=== PATIENT | female | born 1935 | race Caucasian/White ===

== ENCOUNTER 2022-03-20 12:55 | Inpatient (IN) | payer MEDICARE, OTHER ==
[~2022-03-20] VITALS: Ht 165.1 cm; Wt 64.7 kg
[2022-03-20] MEDS ORDERED: LO-DOSE ASPIRIN81 MG PO (13:25)
[2022-03-20] MEDS ORDERED: CALCIUM 600-VI1 EA10 PO (13:26)
[2022-03-20] MEDS ORDERED: LASIX20 MG PO (13:27)
[2022-03-20] MEDS ORDERED: LEVOTHYROXINE100 MC2 PO (13:27)
[2022-03-20] MEDS ORDERED: COZAAR100 MG PO (13:27)
[2022-03-20] MEDS ORDERED: MACROBID 100 M100 MG PO (13:28)
[2022-03-20] MEDS ORDERED: ALDACTONE25 MG PO (13:28)
[2022-03-20] MEDS ORDERED: SIMVASTATIN20 MG PO (13:28)
[2022-03-20] MEDS ORDERED: CEFDINIR300 MG PO (13:29)
[2022-03-20] MEDS ORDERED: FLOMAX0.4 MG PO (13:29)
[2022-03-20] MEDS ORDERED: GABAPENTIN300 MG PO (13:30)
--- NOTE | 2022-03-20 18:26 | EKG ---
[facility] [address] [place], [place] [address] Signed Normal sinus rhythm Left axis deviation Left bundle branch block Abnormal ECG No previous ECGs available Confirmed by Santi Stockton MD () on 03/20/2022 6:26:09 PM Electronically Signed By: SANTI STOCKTON MD 03/20/221825 PATIENT NAME: ALLAN IBARRA Electrocardiogram DATE OF : 35 PHYSICIAN: SANTI STOCKTON MD REPORT #: [id number] REPORT IS CONFIDENTIAL AND NOT TO BE RELEASED WITHOUT AUTHORIZATION
--- NOTE | 2022-03-20 19:35 | NUR ---
PT ASSESSMENT COMPLETE. PT ARRIVES TO FLOOR VIA STRETCHER. PULLED TO BED WITH STAFF ASSIST. PT MOANS WITH TURNING. PT DOES NOT ANSWER QUESTIONS REGARDING PAIN. FLACC SCALE 2/10. PT STATES PART OF HER , NOT ENTIRELY ACCURATE. OTHERWISE DISORIENTED. LUNG SOUNDS WITH CRACKLES TO BILATERAL LOWER LOBES. NO COUGH NOTED DURING ASSESSMENT. SA02 @ 100 ON 2 LPM VIA NC. CHRONIC STEVENSON CATH PRESENT. DRAINING YELLOW URINE. SMALL AMOUNT OF SEDIMENT PRESNT IN TUBING. CHANGED BY ER PRIOR TO COMING TO THE FLOOR. BRUISE TO L GARCIA, B HEELS WITH BLANCHABLE REDNESS. HEEL PROTECTORS APPLIED. SACRUM/ COCCYX WITH SEVERAL SMALL OPEN AREAS AND AREA OF PURPLE DEEP TISSUE INJURY. ALLEVYN FOAM APPLED. PICTURES OBTAINED, PLACED IN CHART. IV X 2 FLUSHED WITH 5 ML NS. WNL. HOT WATER HEATER INSTALLER REMAINS AT BEDSIDE FOR ADMISSION PROCESS. BED ALARM ACTIVE. CALL LIGHT IN REACH.
--- NOTE | 2022-03-20 20:13 | NUR ---
pt ARRIVES TO MS FLOOR AT 193. NODS HEAD IN REPONSE TO QUESTIONS. WHEN ASKED WHERE SHE LIVES, pt [facility]". pt DOES NOT ANSWER LOCATION QUESTION. VSS. PRIMARY RN IN ROOM. IV ANTIBIOTICS INFUSING WNL. BED ALARM SET. CALL VINOD IN REACH.
--- NOTE | 2022-03-20 22:51 | NUR ---
HYPERION DEVELOPER TO ROOM FOR SCHEDULED MEDCIATION ADMINISTRATION. PT WAKES BRIEFLY WHILE HYPERION DEVELOPER AT BEDSIDE. DOES NOT RESPOND TO QUESTIONS, FALLS BACK TO SLEEP QUICKLY. CALL LIGHT IN REACH. BED ALARM ACTIVE.
--- NOTE | 2022-03-21 00:48 | NUR ---
PT ROUNDING. PT RESTING IN BED WITH EYES CLOSED. RESPIRATIONS EVEN AND UNLABORED. PT DOES NOT WAKE WHILE DIALYSIS NURSE AT BEDSIDE. CALL LIGHT IN REACH. BED ALARM ACTIVE.
--- NOTE | 2022-03-21 03:11 | NUR ---
PT ASSESSMENT COMPLETE. PT RESTING IN BED WITH EYES CLOSED. WAKES EASILY. PT ORIENTED SELF ONLY. PT STATES THAT SHE IS THIRSTY, ABLE TO TAKE A DRINK OF WATER WITH ASSISTANCE. TOLERATED WELL. PT DENIES PAIN. CRACKLES AUSCLTATED TO BILATERAL LOWER LOBES OF LUNGS. NO COUGH NOTED DURING ASSESSMENT. O2 IN PLACE AT 2 LPM VIA NC. STEVENSON CATH DRAINING YELLOW URINE WITH SEDIMENT PRESENT IN THE TUBING. IVF INFUSING ORDERED. PT REPOSITIONED AND PROPPED WITH PILLOWS. TOLERATED WELL. PT DENIES FURTHER NEEDS. CALL LIGHT IN REACH. BED ALARM ACTIVE.
--- NOTE | 2022-03-21 06:08 | NUR ---
SUBSTITUTE BUS DRIVER TO ROOM FOR SCHEDULED MEDICATION ADMINISTRATION. PT RESTING WITH EYES CLOSED. PT WAKES EASILY. STATES THAT SHE IS HAVING PAIN TO LOWER GUMS. PT STATES THAT OCCASIONALLY HER LOWER DENTURES CAUSE HER PAIN. DENTURES REMOVED AND SOAKED IN EFFERDENT. PT DECLINES TO HAVE TOP DENTURES REMOVED AT THIS TIME. PT TOLERATES TAKING PILLS WELL. DENIES FURTHER NEEDS AT THIS TIME. CALL LIGHT IN REACH. BED ALARM ACTIVE.
--- NOTE | 2022-03-21 07:16 | NUR ---
RECEIVED REPORT FROM JOSHUA NOLAND. ASSUMING CARE OF PT. PT UP IN ROOM WITH 2PA/WALKER. PT SITTING IN CHAIR ONCE.
--- NOTE | 2022-03-21 07:28 | NUR ---
REPORT FROM NUZHAT GORDON.
--- NOTE | 2022-03-21 07:55 | NUR ---
PT IN BED SLEEPING. PT REPOS ONTO R SIDE. BLANKET REPOS ONTO PT. NO FURTHER NEEDS. CALL LIGHT WITHIN REACH
--- NOTE | 2022-03-21 08:20 | NUR ---
IN TO CHECK ON PT. PT OFF THE PHONE. I ASSOCIATE PROFESSOR OF PATHOLOGY ASKED PT IF WE COULD GET HER UP TO THE CHAIR AND PT STATED " I CAN HARDLY MOVE". I LET PT KNOW WE COULD TRANSFER HER VIA [facility] AND DO ALL THE WORK FOR HER. PT SAID NO. JESSENIA CARE/ CATH CARE PERFORMED. BRIEF WAS CHECKED AND WAS OK. PT SAT UP A LITTLE IN BED. FRESH ICE WATER GIVEN. NO FURTHER NEEDS. CALL LIGHT WITHIN REACH.
--- NOTE | 2022-03-21 09:37 | NUR ---
MORNING ASSESSMENT IS COMPLETE. DR. STOCKTON IN TO SEE PATIENT THIS MORNING. CSPINE ORDERED DUE TO PATIENT REPORTING NECK PAIN AND IS TURNED TO THE RIGHT. PATIENT INDICATES THAT SHE CANNOT MOVE HER HEAD TO THE LEFT. PATIENT IS A POOR HISTORIAN, UZBEK IS HER SECOND LANGUAGE AFTER MALTESE, AND GRANDDAUGHTER SAID SHE HAS DIFFICULTY UNDERSTANDING UZBEK AT TIMES. PATIENT IS UNABLE TO RATE HER PAIN, BUT GIVEN 2 ON FACES SCALE. PATIENT IS DRINKING MILK, VANILLA ENSURE ON HER OWN. PLAN TO TURN PATIENT AT 1000 AND REASSESS HER COCCYX DRESSING. FAMIILY AND PATIENT DO NOT KNOW WHEN LAST BM OCCURED.
--- NOTE | 2022-03-21 09:44 | NUR ---
IN ROOM TO DO VITALS AND IS AND OS. VITALS AND IS AND OS COMPLETE. PT BRIEF CHECKED AND OK. PT REPOS ONTO R SIDE. RN IN ROOM WITH ME THE WHOLE TIME. NO FURTHER NEEDS. CALL LIGHT WITHIN REACH
--- NOTE | 2022-03-21 11:21 | NUR ---
PATIENT TO IMAGING AND NOW BACK IN ROOM.
--- NOTE | 2022-03-21 11:39 | NUR ---
PHYSICAL THERAPY IN TO ATTEMPT TO WORK WITH PATIENT, PATIENT DID NOT TOLERATE ACTIVITY, BECAME NAUSEATED. PATIENT REPOSITIONED TO LEFT SIDE, NAUSEA WENT AWAY. PATIENT SEEMS TO BE RESTING.
--- NOTE | 2022-03-21 11:43 | NUR ---
RESTING IN BED AND WATCHING TV. PATIENT CURRENTLY LIVES AT [place] BECAUSE THERE WERE NO BEDS IN [facility] PATIENT WILL RETURN TO [facility] IN [place] WHEN DISCHARGED.
--- NOTE | 2022-03-21 12:59 | NUR ---
VITAL DONE AND ARE IMPROVED. DR. STOCKTON NOTIFIED. PATIENT IS SLEEPING WITH REGULAR RESPIRATIONS.
--- NOTE | 2022-03-21 13:00 | NUR ---
PT SITTING UP IN BED. VITALS AND IS AND OS COMPLETE. PT REPOS BY RN PERVIOUSLY. NO NEEDS. CALL LIGHT WITHIN REACH.
--- NOTE | 2022-03-21 13:10 | NUR ---
REPOSITIONED PATIENT TO RIGHT SIDE. PATIENT REFUSED LUNCH, SAYING, "WATER AND MILK" PATIENT IS SIPPING ON BOTH. PATIENT SAID IT HURTS TO MOVE AND NOTHING TASTES GOOD. PATIENT REPORTED THAT SHE IS NOT DEPRESSED.
[2022-03-21] MEDS ORDERED: CO Q-10200 MG PO (14:44)
[2022-03-21] MEDS ORDERED: PROBIOTIC1 EAC1 PO (14:48)
[2022-03-21] MEDS ORDERED: TYLENOL EXTRA500 MG PO (14:53)
--- NOTE | 2022-03-21 14:54 | NUR ---
MED REC COMPLETE
--- NOTE | 2022-03-21 15:23 | NUR ---
PATIENT IS SLEEPING AT THIS TIME. NO FAMILY IS PRESENT. NUTRITION ASSESSMENT WILL BE DONE ANOTHER TIME. PATIENT IS ON A REGULAR DIET.
--- NOTE | 2022-03-21 15:48 | NUR ---
PATIENT REPOSITIONED TO LEFT SIDE, LEGS ARE ELEVATED SO HEELS ARE OFF THE BED. PATIENT IS GRUNTING. WHEN ASKED WHY SHE REPLIES, "I DON'T KNOW WHY I'M MAKING THAT SOUND.
--- NOTE | 2022-03-21 16:05 | NUR ---
PATIENT GIVEN 10MG OF IV TORADOL R/T GRUNTING. PATIENT CONTINUES TO DENY PAIN.
--- NOTE | 2022-03-21 16:27 | NUR ---
PATIENT IS NOT GRUNTING POST TORADOL. PATIENT ASKED IF THE MEDICATION HELPED AND SHE SHOOK HER HEAD NO. PATIENT WAS ALSO ABLE TO MOVE HEAD TO CENTER.
--- NOTE | 2022-03-21 17:41 | NUR ---
PATIENT IS RESTING IN BED, REPOSITIONED. PATIENT IS REFUSING FOOD AT THIS TIME. PATIENT SAID, "MY SON AND DAUGHTER WILL BE HERE TOMORROW, I WANT TO GO HOME." PATIENT POINTED UP. PATIENT ALSO SAID, "I HAVE MY WISHES WRITTEN, MY FAMILY KNOWS."
--- NOTE | 2022-03-21 20:00 | NUR ---
REPORT RECEIVED FROM DAY SHIFT RN. PT LYING ON RIGHT SIDE RESTING WITH EYES CLOSED. AWAKENS EASILY. DENIES NEEDS. WHITE BOARD UPDATED. CALL LIGHT REACH.
--- NOTE | 2022-03-21 22:15 | NUR ---
PT HEARD GRUNTING. IN TO ASSESS. PT REPORTS FEELING NAUSEOUS AND LIKE SHE "NEEDS TO BURP, BUT NOTHING COMES OUT." PRN FOR N/V ADMIN PER EMAR. IV ABX INFUSING PER ORDER. PT DENIES PAIN. PT INCONTINENT OF SMALL AMOUNT BROWN BM. JESSENIA CARE AND STEVENSON CARE DONE. CLEAN BRIEF IN PLACE. STEVENSON PATENT WITH YELLOW URINE. PT REPOSITIONED WITH PILLOWS. HEEL PROTECTORS IN PLACE. WARM BLANKET PROVIDED. NO FURTHER NEEDS. CALL LIGHT IN REACH.
--- NOTE | 2022-03-22 00:15 | NUR ---
PT RESTING IN BED WITH EYES CLOSED. RESPIRATIONS EVEN. CALL LIGHT IN REACH.
--- NOTE | 2022-03-22 02:13 | NUR ---
PT FLOATED WITH PILLOWS. SIPS OF WATER PROVIDED. ASSISTED WITH ORAL CARE. IV ABX INFUSING PER ORDER. PT HAD REMOVED OXYGEN. SpO2 90% ON RA. NC REPLACED, PT STATES, "WHY? I DON'T WANT TO LIVE ANYMORE." COMFORT PROVIDED. NO FURTHER NEEDS AT THIS TIME.
--- NOTE | 2022-03-22 05:49 | NUR ---
PT INCONTINENT OF STOOL. STAFF ASSIST WITH JESSENIA CARE. REPOSITIONED WITH PILLOWS. IV ABX INFUSING PER ORDER. PT DENIES PAIN OR NAUSEA AT THIS TIME. NO FURTHER NEEDS.
--- NOTE | 2022-03-22 09:00 | NUR ---
PATIENT RESTING IN BED, NO DISTRESS, AROUSABLE TO VERBAL STIMULI. PATIENT DENIES PAIN AT THIS TIME. PATIENT REPOSITIONED AT THIS TIME WITH TICKET MACHINE OPERATOR ASSIST. NO CURRENT NEEDS, PERSONAL SUPPLIES AND CALL LIGHT WITHIN REACH.
--- NOTE | 2022-03-22 09:12 | NUR ---
SPOKE TO DAUGHTER SEBASTIEN. THE PLAN OF CARE CONTINUES TO BE THAT THE PATIENT WILL GO BACK TO [facility] WHEN DISCHARGED FOR REHAB.FAMILY PLANS THAT THE PATIENT WILL GO BACK HOME IN THE FUTURE.
--- NOTE | 2022-03-22 09:23 | NUR ---
NEW MAINLINE IV FLUIDS HUNG BY THIS RN AND PATIENT'S LOVENOX SHOT GIVEN WHICH SHE TOLERATED WELL. PATIENT RESTING QUIETLY IN LOW FOWLERS POSITION. CALL LIGHT IN REACH AND PATIENT HAS NO OTHER NURSE CARE NEEDS AT THIS TIME.
--- NOTE | 2022-03-22 12:35 | NUR ---
PATIENT REPOSITIONED AT THIS TIME. PT DENIES PAIN AND OR SHORTNESS OF BREATH. ORAL CARE PROVIDED, FRESH WATER TO PT. NO FURTHER NEEDS, CALL LIGHT WITHIN REACH.
--- NOTE | 2022-03-22 13:23 | NUR ---
Family at beside. Family and patient want to go to back to the [facility]. Right now patient is at [facility]. Family would like to move patient to [facility] Case Manangement enformed family that patient will return to [facility] to be discharged when patient is well.
--- NOTE | 2022-03-22 13:39 | NUR ---
PATIENT'S FAMILY IS NOW VISITING. PATIENT'S DAUGHTER WANTS PATIENT TO EAT WHILE THE DAUGHTER IS HERE. GREEN BEANS AND CREAM OF MUSHROOM SOUP PROVIDED REQUESTED. PATIENT SEEMS A BIT CONFUSED. SAYS SHE LIKES THE ENSURE CLEAR WHICH WE HAVE. PER THE DAUGHTER, THE PATIENT HAS NOT EATEN SINCE 03/10. SHE WENT TO [place] ON 03/08, HAD A GOOD DAY 03/09, BUT HAS NOT EATEN MUCH SINCE 03/10. A REGULAR DIET MENU WAS PROVIDED AND I EXPLAINED TO THE FAMILY TO CALL THE KITCHEN BY 3:30 PM TO MAKE ANY CHANGES TO HER DINNER. PATIENT HAS NO DIFFICULTY CHEWING OR SWALLOWING. LIKES BLACK COFFEE, LIKES MILK. DOESN'T LIKE STRAWBERRY ENSURE? WILL CONTINUE TO MONITOR.
--- NOTE | 2022-03-22 17:12 | NUR ---
PT RESTING IN BED. VITALS AND IS AND OS COMPLETE. PT DECLINED TO EAT MEAL. NO FURTHER NEEDS. CALL LIGHT WITHIN REACH
--- NOTE | 2022-03-22 17:54 | NUR ---
Patient repositioned at this time. Patient reports she is comfortable at this time, no pain. Patient offered water and a snack however she declined. Patient reports she does not have an appetite. IV site remains patent, kcl infusing per provider order. Patient remains on 2L oxygen per nc, respirations non labored.
--- NOTE | 2022-03-22 19:10 | NUR ---
REPORT RECEIVED FROM NUZHAT HERNANDEZ. PT RESTING IN BED WITH RR EVEN AND UNLABORED. PTs EYES CLOSED. PT AWAKENS WITH TOUCH ON SHOULDER AND WHEN BEING ADDRESSED. PT IS DROWSY. PT REPORTS HAVING AN UPSET STOMACH. PLANS TO ADMINISTER ZOFRAN WHEN AVAILABLE. PT CONTINUES TO REST IN BED WITH EYES CLOSED. NO OTHER NEEDS IDENTIFIED AT THIS TIME. IV INFUSING WNL. CALL LIGHT IN REACH.
--- NOTE | 2022-03-22 22:04 | NUR ---
IN TO ADMINISTER MEDICAITON, SEE MAY. IV ABX AND IV FLUIDS INFUSING WNL. ASSESSMENT COMPLETE. LUNG SOUNDS CLEAR IN RUL AND SHERICE. DIMINISHED AND CRACKLES IN RLL AND LLL. BOWEL TONES ACTIVE. NON-TENDER WITH PALPATION. PT DENIES ANY PAIN AT THIS TIME. PT REPORTING FEELING NAUSEOUS, PRN ZOFRAN ADMINISTERED, SEE MAR. PT ON 2L NC WITH O2 SATS AT 100%. EDEMA NOTED TO BLE NON-PITTING. SCATTERED BRUISING NOTED TO BILATERAL ARMS. PT REPORTS NO OTHER NEEDS AT THIS TIME. CALL LIGHT IN REACH. BED ALARM ON.
--- NOTE | 2022-03-23 01:03 | NUR ---
IN WITH NUZHAT MIRANDA. PT TURNED. PILLOW PLACED UNDER RIGHT SIDE. PT REPORTS NO OTHER NEEDS AT THIS TIME. CALL LIGHT IN REACH. BED ALARM ON. PT RESTING IN BED WITH EYES CLOSED. RR EVEN AND UNLABORED.
--- NOTE | 2022-03-23 03:24 | NUR ---
IN TO ADMINISTER MEDICATION, SEE MAR. IV INFUSING WNL. PT GROANING. PT OFFERED PRN TYLENOL, PT ACCEPTS. WHEN ATTEMPTING TO ADMINISTER PRN TYLENOL PT REFUSES. PT RATED PAIN 3/10 IN UPPER ABD. PT REPORTS FEELING NAUSEOUS. NO NAUSEA MEDICATION AVAILABLE AT THIS TIME. ASSESSMENT COMPLETE. LUNG SOUNDS CLEAR IN RUL AND SHERICE. DIMINISHED IN RLL AND LLL WITH SOME CRACKLES IN RLL. BOWEL TONES ACTIVE. STEVENSON EMPTIED. CATHETER CARE PERFORMED. BM NOTED. NUZHAT MIRANDA IN TO ASSIST WITH JESSENIA CARE. ALLEVYN REMOVED DUE TO STOOL BEING UP UNDER ALLEVYN, NEW ALLEVYN PLACED ONCE JESSENIA AREA CLEANED. RENDESS NOTED TO GROIN, CAVILON SPRAY TO AREA. NEW ATTEND UNDER PT, BUT LEFT OPEN SO GROIN AREA CAN AIR OUT. PTs KNEES UP WITH PILLOW BETWEEN KNEES TO ALLOW FOR AIR FLOW. PT RESTING IN BED. EYES CLOSED. RR EVEN AND UNLABORED. PT IS NOT GORANING AT THIS TIME. NO OTHER NEEDS IDENTIFIED AT THIS TIME. CALL LIGHT IN REACH. BED ALARM ON.
--- NOTE | 2022-03-23 06:13 | NUR ---
LAB TECHS IN pt ROOM. SCHEDULED ANTIBIOTIC ADMINISTERED, INFUSING WNL. PO MEDICATION ADMINISTERED WITH SIP OF WATER. CALL LIGHT IN REACH. BED ALARM ON.
--- NOTE | 2022-03-23 07:48 | NUR ---
recieved shift report. pt laying in bed, awake. denies further needs. reoriented to the call light.
--- NOTE | 2022-03-23 09:20 | NUR ---
MORNING ASSESSMENT COMPLETE. PT DENIES PAIN AT THIS TIME. MOVING LEGS DURING ASSESSMENT PT BEGAN TO MOAN, AND GRIMACE, BUT CONTINUED TO DENY PAIN. PT IS AWARE SHES AT HOSPITAL BUT UNABLE TO VERBALIZE DATE, PLACE, AND EVENT. LUNG SOUNDS CLEAR BILAT UPPER. CRACKLES BILAT LOWER. CATHETER PATENT AND WITH CLEAR YELLOW DRAINAGE. CALL LIGHT WITHIN REACH.
--- NOTE | 2022-03-23 10:00 | NUR ---
Spoke with pt and updated, plans for pt to remain another day. Pt states she is not happy about this and asks I call her daughter to update.
--- NOTE | 2022-03-23 11:40 | NUR ---
SET UP OPERATOR TOOL REPORTED BP 98/41 MAP 53. THIS RN IN ROOM TO REASSESS BP ON OPPOSITE ARM 102/39 MAP 54. PT DENIES LIGHTHEADED, DIZZINESS, SOB. MAHIN NOTIFIED. MAHIN WILL PUT IN ORDERS.
--- NOTE | 2022-03-23 12:39 | NUR ---
IN ROOM TO FEED PT. PT TOOK A BITE OF COTTAGE CHEESE. TOLERATED WELL. PT TOOK ANOTHER BITE BEGAN TO GAG AND THREW UP 200 ML. TOOK A COUPLE SIPS OF WATER AND TOLERATED WELL. PT REFUSES TO EAT.
--- NOTE | 2022-03-23 13:20 | NUR ---
Called daughter, Cristin, and updated. She states she has called twice attempting to speak with the Dr. She would like this pt to have a feeding tube. I expressed my surprise and pt was stating yesterday she did not want to continue to have treatment. She is tired of hospitals. Pt has also stated she had discussed this with the family. I asked the daughter if the pt had discussed this with her. She denies. I asked her to have an in depth conversation with her mother to clarify her wishes.
--- NOTE | 2022-03-23 14:17 | NUR ---
In with Dr. Robison to speak with pt to check if pt would like a feeding tube. Pt explained to DrGabi she vomites each time she eats. He suggested the work on her vomiting before deciding if she needs feeding tube. Pt in agreement.
--- NOTE | 2022-03-23 16:30 | NUR ---
AFTERNOON ASSESSMENT COMPLETE. PT IN RECLINER. REMAINS ON 2L NC. NO NEW CHANGES FROM MORNING ASSESSMENT. DESENEX APPLIED TO REDDENED GROIN. CATHETER PATENT. CALL LIGHT WITHIN REACH.
--- NOTE | 2022-03-23 18:15 | NUR ---
IN ROOM TO ASSIST PT TO BED. PT COMPLAINS OF DIZZINESS. PT INC OF BM. CLEANED. DESENEX REAPPLIED TO GROIN, BARRIER CREAM APPLIED TO BUTTOCK, WITH DAVID LAFLEUR. MANNY RN SPOKE WITH BONNIE REGARDING DIZZINESS. WILL PUT IN ORDERS. CALL LIGHT WITHIN REACH. PT REFUSED DINNER.
--- NOTE | 2022-03-23 19:10 | NUR ---
RECEIVED REPORT FROM NARCISA NOLAND. PT IS RESTING IN BED W/EYES CLOSED. RESPIRATIONS ARE EVEN AND UNLABORED, NO SIGNS OF DISTRESS. CALL LIGHT WITHIN REACH. IV FLUIDS RUNNING DIRECTED. 2 L O2 VIA NC ON AT THIS TIME.
--- NOTE | 2022-03-23 22:50 | NUR ---
PT RESTING IN BED W/EYES CLOSED. PILLOWS PLACED UNDER BOTH HIPS FOR FLOATING. PILLOWCASE PLACED UNDER STEVENSON SITE TO PREVENT PRESSURE WOUND. STEVENSON CARE PERFORMED. LUNGS ARE DIM THROUGHOUT, PT DOES NOT FOLLOW INSTRUCTION FOR DEEP BREATH. UNABLE TO ASSESS SENSATION, PT ONLY MOANS AND WILL BRIEFLY OPEN EYES. PT IS DROWSY BUT WILL MOAN IN RESPONSE TO VOICE AND TOUCH. NONPITTING EDEMA PRESENT IN LFT LOWER EXTREMITY. CMS INTACT X4. PT DOES NOT ANSWER ORIENTATION QUESTIONS. PER FLACC SCALE PT NOT IN PAIN AT THIS TIME, MOANS ONLY WHEN MOVED. FLUIDS INFUSING DIRECTED. ALLEVYN TO SACRUM IS C/D/I, NO OTHER SIGNS OF SKIN BREAKDOWN AT THIS TIME. CALL LIGHT WITHIN REACH.
--- NOTE | 2022-03-24 00:56 | NUR ---
PT RESTING IN BED W/EYES CLOSED. RESPIRATIONS ARE EVEN AND UNLABORED, NO SIGNS OF DISTRESS. CALL LIGHT WITHIN REACH. PT REMAINS ON 2L NC (CHRONIC). STEVENSON DRAINING TO GRAVITY.
--- NOTE | 2022-03-24 01:50 | NUR ---
REMOVED PILLOW FROM LFT SIDE. PT RESTING W/EYES CLOSED. RESPIRATIONS EVEN AND UNLABORED, NO SIGNS OF DISTRESS. CALL LIGHT WITHIN REACH. STEVENSON DRAINING TO GRAVITY. PT ON 2L OF O2 VIA NC (CHRONIC).
--- NOTE | 2022-03-24 04:10 | NUR ---
PT RESTING W/EYES CLOSED. RESPIRATIONS ARE EVEN AND UNLABORED, NO SIGNS OF DISTRESS. PT ON 2L OF O2 VIA NC. STEVENSON DRAINING TO GRAVITY. PILLOW UNDER LFT SIDE FOR FLOATING. PT MOANS W/REPOSITIONING BUT RELAXES AFTER PILLOW IS PLACED. CALL LIGHT WITHIN REACH. IV FLUIDS INFUSING DIRECTED.
--- NOTE | 2022-03-24 06:13 | NUR ---
PT RESTING W/EYES CLOSED. RESPIRATIONS ARE EVEN AND UNLABORED, NO SIGNS OF DISTRESS. CALL LIGHT WITHIN REACH. PT ON 2L OF O2 VIA NC. PILLOW PLACED UNDER RT SIDE. PT MOANS W/MVMNT, AND SELF SOOTHES ONCE REPOSITIONING COMPLETE.
--- NOTE | 2022-03-24 06:30 | NUR ---
IN PT ROOM FOR ASSESSMENT, VS, I/O'S, AND ASSESSOR. PT A&O TO ALL BUT DATE/TIME. PT REQUESTED CUP OF COFFEE. IV FLUIDS INFUSING DIRECTED. NO ACUTE CHANGES FROM PREVIOUS ASSESSMENT. BLE NONPITTING EDEMA AND TENDER TO TOUCH, PT STATES THIS IS NORMAL. PILLOWS REMOVED FOR REPOSITIONING, PT WINCES AND MOANS W/REPOSITIONING BUT SETTLES AND STATES COMFORTABLE ONCE COMPLETE. PT ON 2L NC OF O2 (CHRONIC PER PT). CALL LIGHT WITHIN REACH, NO FURTHER NEEDS AT THIS TIME.
--- NOTE | 2022-03-24 07:50 | NUR ---
RECIEVED SHIFT REPORT. PT RESTING IN BED, EYES CLOSED. BREATHING EVEN AND UNLABORED. CALL LIGHT WITHIN REACH.
--- NOTE | 2022-03-24 08:36 | NUR ---
Pt in bed after repostioning to float. pt does not want to eat but did take coffee. call light within reach.
--- NOTE | 2022-03-24 09:29 | NUR ---
PATIENT RESTING IN BED. PT REFUSED BREAKFAST. VITALS AND I/O'S COMPLETED, STEVENSON DRAINED AND DOCUMENTED. PT HAS NO OTHER NEEDS AT THIS TIME. CALL LIGHT WITHIN REACH.
--- NOTE | 2022-03-24 09:47 | NUR ---
MORNING ASSESSMENT COMPLETE. PT RESTING IN BED, EYES CLOSED, EASY TO AROUSE. PT STATES SHE IS PAIN, BUT IS UNABLE TO RATE THE PAIN. WHEN ASSESSING LEGS PT GRIMACES. PT REFUSED PRN PAIN MEDICATION, AND STATES "LET ME GO BACK TO SLEEP". PT REMAINS ON 2L NC. LUNG SOUND CLEAR BILAT UPPER. DIMINISHED BILAT LOWER. PT ENCOURAGED TO DRINK ENSURE, BUT CONITUNES TO REFUSE. CALL LIGHT WITHIN REACH. CATHETER PATENT.
--- NOTE | 2022-03-24 10:35 | NUR ---
phyiscal therapy reported pt said her son and daughter said they dont want her getting out of bed. pt refusing to get out of bed. pt states "i am in [facility]".
--- NOTE | 2022-03-24 11:10 | NUR ---
STOPPED TO CHECK ON PT-SHE IS SLEEPING. DID NOT DISTURB
--- NOTE | 2022-03-24 11:39 | NUR ---
IV FLUIDS CHANGED. PT RESTING IN BED, EYES CLOSED. BREATHING EVEN AND UNLABORED. CALL LIGHT WITHIN REACH.
--- NOTE | 2022-03-24 11:49 | NUR ---
SPEECH/SWALLOW EVALUATION ATTEMPTED; PT INFORMED OF RISKS/BENEFITS FOR EVALUATION, BUT ULTIMATELY PT REFUSED SWALLOW EVALUATION VIA HEAD SHAKE.
--- NOTE | 2022-03-24 12:00 | NUR ---
Spoke with pt, her daughter, and pts spouse. Daughter is a nurse in [facility] [facility]. Notified by daughter, pt no longer wanting treatment. Awakened pt and explained to daughter we will follow pts wishes. Asked pt several questions about her wants and pt adamantly refusing treatment.Pt stating, "I want to go home." I asked pt what home means to her, she states, "[place]". Pt begging daughter for no more treatment, asking for no more shots or pokes. Pts mouth is dry and daughter attempted to give her water with a straw, pt could not sip through a straw. Drops of water were placed into pts mouth. Dr Robison spoke with pt and pt repeated she doesn't want treatment. Discussed Hospice with pt and daughter. Pt would like to return to her home in [place]. Daughter states she would be able to stay with pt and her dad to assist. Returned to my office and called [facility] in [facility]. They request a chart to review. Unsure if they could admit this weekend, but are willing to review the chart.
--- NOTE | 2022-03-24 12:15 | NUR ---
IN ROOM WITH PATIENT FAMILY, CASE MANAGEMENT, AND DR STOCKTON DISCUSSING PLAN OF CARE.
--- NOTE | 2022-03-24 14:43 | NUR ---
PT LAYING IN BED. FAMILY AT BEDSIDE. ABX ZOSYN BEING ADMINISTERED AT THIS TIME. CALL LIGHT WITHIN REACH.
--- NOTE | 2022-03-24 16:00 | NUR ---
AFTERNOON ASSESSMENT COMPLETE. NO NE CHANGES SINCE MORE ASSESSMENT. CALL LIGHT WITHIN REACH.
--- NOTE | 2022-03-24 16:32 | NUR ---
Notified pt's son has arrived. In and spoke with daughter, son, and pts spouse. Pt is awake and clearily stating she is going home. They are attempting to explain they need to have hospice in for a bed and equipment before she can go home. Pt stating she will sleep on the sofa. Explained hospice to family. Let them know I have been speaking with Angely from [facility] and she will contact them on Sunday. FAmily plans to return on to be with pt. Hospice states they could admit this pt on Sunday as they have an opening. They will also need to have DME delivered. They will confirm on Sunday. They will be closed until Sunday due to the Holiday.
--- NOTE | 2022-03-24 17:39 | NUR ---
PATIENT IN BED AFTER MEAL. PT REFUSED THE MEAL. VITALS AND I/O'S COMPLETED. STEVENSON DRAINED AND DOCUMENTED. PT HAS NO OTHER NEEDS AT THIS TIME. CALL LIGHT WITHIN REACH.
--- NOTE | 2022-03-24 17:58 | NUR ---
[phone], .
--- NOTE | 2022-03-24 19:05 | NUR ---
RECEIVED REPORT FROM NARCISA NOLAND. PT RESTING IN BED W/EYES CLOSED. RESPIRATIONS ARE EVEN AND UNLABORED, NO SIGNS OF DISTRESS. PT ON 1L OF O2 VIA NC. STEVENSON DRAINING TO GRAVITY. CALL LIGHT WITHIN REACH.
--- NOTE | 2022-03-24 21:50 | NUR ---
IN PT ROOM FOR ASSESSMENT. PT RESTING W/EYES CLOSED BUT AWAKENS TO VOICE. PT REPORTS NO PAIN AT THIS TIME. PT REPORTS NO NAUSEA, SOB, OR DIZZINESS. STEVENSON DRAINING TO GRAVITY, STEVENSON CARE PERFORMED. JESSENIA CARE PERFORMED, DESENEX POWDER APPLIED TO GROIN REGION. LUNGS ARE DIM THROUGHOUT AND COARSE IN BASES, PT UNABLE TO TAKE DEEP BREATHS. NONPITTING EDEMA IN BLE, INCREASED IN LFT LEG, PAIN W/TOUCH TO LEGS. ACTIVE BOWEL TONES X4. IV FLUIDS INFUSING DIRECTED, SITE WNL. ALLEVYN TO BACKSIDE C/D/I. CALL LIGHT WITHIN REACH, NO FURTHER NEEDS AT THIS TIME.
--- NOTE | 2022-03-24 22:22 | NUR ---
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 IV SITE WNL. ABX NOW INFUSING DIRECTED. PT RESTING W/EYES CLOSED, RESPIRATIONS ARE EVEN AND UNLABORED, NO SIGNS OF DISTRESS. CALL LIGHT WITHIN REACH. NC IN PLACE W/2L OF O2 (CHRONIC).
--- NOTE | 2022-03-25 00:37 | NUR ---
PERFORMED HOURLY ROUNDING. PT RESTING IN BED W/EYES CLOSED. RESPIRATIONS ARE EVEN AND UNLABORED, NO SIGNS OF DISTRESS. CALL LIGHT WITHIN REACH. IV ABX INFUSING DIRECTED. 2L NC OF O2 IN PLACE (CHRONIC).
--- NOTE | 2022-03-25 01:30 | NUR ---
PT RESTING W/EYES CLOSED. RESPIRATIONS ARE EVEN AND UNLABORED, NO SIGNS OF DISTRESS. CALL LIGHT WITHIN REACH. STEVENSON DRAINING TO GRAVITY. HEEL PROTECTORS IN PLACE. IV ABX INFUSING DIRECTED, SITE WNL. RECEIVING 2L VIA NC (CHRONIC).
--- NOTE | 2022-03-25 03:02 | NUR ---
PT RESTING W/EYES CLOSED. RESPIRATIONS ARE EVEN AND UNLABORED, NO SIGNS OF DISTRESS. CALL LIGHT WITHIN REACH. IV FLUIDS INFUSING DIRECTED. O2 DELIVERY OF 2L VIA NC (CHRONIC) IN PLACE. PT APPEARS COMFORTABLE AT THIS TIME.
--- NOTE | 2022-03-25 04:30 | NUR ---
PT RESTING W/EYES CLOSED. RESPIRATIONS ARE EVEN AND UNLABORED, NO SIGNS OF DISTRESS. CALL LIGHT WITHIN REACH.
--- NOTE | 2022-03-25 05:33 | NUR ---
IN PT ROOM D/T BEEPING PUMP. NEW BAG OF CONTINUOUS FLUIDS HUNG. PT RESTING W/EYES CLOSED. RESPIRATIONS ARE EVEN AND UNLABORED, NO SIGNS OF DISTRESS. IV SITE WNL. CALL LIGHT WITHIN REACH.
--- NOTE | 2022-03-25 05:45 | NUR ---
IN PT ROOM FOR REFUSE COLLECTOR SUPERVISOR, ASSESSMENT. PT RESTING IN BED, AWAKENS TO VOICE. PT REPORTS NO PAIN, NAUSEA, N/T, DIZZINESS, SOB AT THIS TIME. NO ACUTE CHANGES FROM PREVIOUS ASSESSMENT. PT ONLY ORIENTED TO SELF AT THIS TIME. REORIENTED PT. PT STATES SHE IS READY TO GO HOME, ASKED WHERE HOME WAS AND PT POINTED UP TO THE CEILING. ASKED PT TO SMILE TO TEST FACIAL MUSCLE STRENGTH D/T PRESENT WEAKNESS W/SPEECH AND PT STATES SHE "HAS NOTHING TO SMILE ABOUT". PILLOW REMOVED FROM RT SIDE, PT MOANS W/MVMNT BUT QUICKLY CONSOLED ONCE SETTLED AFTER POSITION CHANGE. PT UNABLE TO SIP FROM STRAW, SMALL SPOONFULLS OF WATER GIVEN, PT TOLERATED WELL DURING REFUSE COLLECTOR SUPERVISOR. CALL LIGHT WITHIN REACH, NO FURTHER NEEDS AT THIS TIME.
--- NOTE | 2022-03-25 07:39 | NUR ---
REPORT RECEIVED FROM NUZHAT JAMES. PT RESTING IN BED WITH EYES CLOSED, RESPRIATIONS EVEN AND UNLABORED ALTHOUGH "O SIGN" IS SEEN WITH OPEN MOUTH BREATHING. ERIKA REPORTS THAT PT IS VERY TENDER TO TOUCH ANYWHERE ON HER BODY AND DECLINES MOVEMENT. DR. NICOLE UPDATED AND NEW ORDERS GIVEN FOR SCD'S AND MORPHINE, ORDERS ENTERED, REPEAT BACK PERFORMED. NO ADDITONAL NEEDS AT THIS TIME. CALL LIGHT WIHTIN REACH. BED RAILS UP.
--- NOTE | 2022-03-25 08:11 | NUR ---
PATIENT IN BED THIS AM. PT REFUSED TO GET INTO CHAIR. PT WAS ALSO REPOSITIIONED TO A "FLOAT" WITH TWO PILLOWS UNDER EACH SIDE. PT ALSO TOOK SIPS OF WATER AND COFFEE FROM A SPOON. AM CARE COMPLETED. CALL LIGHT WITHIN REACH.
--- NOTE | 2022-03-25 09:07 | NUR ---
MORNING ASSESSMENT AND MEDICATION DUE. PT DENIES PAIN AND NAUSEA. PT NOTED TO BE VERY SENSITIVE TO TOUCH OR ANY MOVEMENT. PT DECLINES REPOSITIONING. PT DECLINES PAIN MEDICATIONS. PT STATES "NO NEEDLES!" AND DECLIENS ENOXAPARIN. PT ALSO DECLINES SCD'S. PT EDUCAITON DONE REGARDING CLOT PREVENTION. PT VERBALIZES UNDERSTANDING AND CONTINUES TO DECLINE. PT STATES SHE WOULD LIKE TO "GO HOME TO [facility]" AND DOES NOT WANT MORE TREATEMENT. PT ASSISTED WITH GETTING COMFORTABLE. ARMS ELEVATED ON PILLOWS. LUNG SOUNDS CLEAR IN UPPER LOBES, CORSE AND DEMINISHED IN BASES. PT COUGHING UP THICK YELLOW SPUTUM. DENTURES REMOVED BY PT. SUCTION APPLIED TO ASSIST WITH SPUTUM. HEART TONES REGULAR, MURMUR HEARD. GENERALIZED EDEMA CONTINUES IN LEGS AND ARMS. ABDOMEN SOFT AND NON TENDER. PT DECLIENS BREAKFAST. CLEAR YELLOW URINE NOTED IN STEVENSON CATHETER, QUANTITY SUFFICIENT. NO ADDITIONAL ERQUESTS OR COMPLAINTS AT THIS TIME. CALL LIGHT WITHIN REACH. BED RAILS UP.
--- NOTE | 2022-03-25 09:25 | NUR ---
PATIENT LYING IN BED, EYES CLOSED. VITALS AND I/O'S COMPLETED. STEVENSON DOCUMENTED AND DRAINED. CALL LIGHT WITHIN REACH.
--- NOTE | 2022-03-25 09:54 | NUR ---
THIS RN TO ROOM TO CHECK ON PT. PT RESTING IN BED WITH EYES CLOSED. RESPIRATIONS EVEN AND UNLABORED. "O" SIGN CONTINUES. PT ALLOWED TO REST. CALL LIGHT WITHIN REACH. BED RAILS UP.
--- NOTE | 2022-03-25 10:36 | NUR ---
PATIENT REPOSTIONED TO THE LEFT SIDE, ORAL CARE COMPLETED. PT REFUSED WASHCLOTH. PT CALL LIGHT IN REACH.
--- NOTE | 2022-03-25 11:26 | NUR ---
THIS RN TO ROOM TO CHECK ON PT. PT RESTING WITH EYES CLOSED. PTS GRANDDAUGHTER ARRIVED TO VISIT WITH PT. EXTENSIVE ORAL CARE WITH SUCTION PERFORMED. MOUTH DEBREEDING AGENT, MOUTH WASH, AND MOUTH MOISTURIZER USED. PT DOES NOT LIKE ORAL CARE AND STATES "YOU ALL NEED TO GO HOME" BUT VERBALIEZES UNDERSTANDING OF NEED FOR ORAL CARE. FAMILY EXPRESSES APPREICAITON FOR ORAL CARE. PT REMAINS ON RIGHT SIDE, SUPPROTED WITH PILLOWS. HEAD OF BED ELEVATED TO 30 DEGREES. PT DENIES PAIN AND NAUSEA. NO ADDITONAL REQUESTS OR COMPLAINTS. CALL LIGHT WITHIN REACH. BED RAILS UP.
--- NOTE | 2022-03-25 11:59 | NUR ---
THIS RN TO ROOM TO CHECK ON PT. PT REQUESTS ICE CHIPS, ICE CHIPS PROVIDED. PT DENIES PAIN AND NAUSEA. PT DECLINES REPOSITOINING AT THIS TIME. BED RAILS UP. CALL LIGHT WITHIN REACH. PTS GRANDDAUGTHER PAINTING PTS TOE NAILS. NO ADDIITONAL REQUESTS OR COMPLAINTS. CALL LIGHT WITHIN REACH. BED RAILS UP.
--- NOTE | 2022-03-25 12:30 | NUR ---
Patient repositioned to right side in bed. Pt refused oral care as well as reji care. This AUTOMATIC MAINTAINER will reapproach when rounding. Call light within reach.
--- NOTE | 2022-03-25 13:06 | NUR ---
THIS RN TO ROOM TO CHECK ON PT. PT RESTING ON RIGHT SIDE, SUPPORTED WITH PILLOWS. HEAD OF BED ELEVATED TO 30 DEGREES. RESPIRATIONS EVEN AND UNLABORED ALTHOUGH "O" SIGN CONTINUES. PT ALLOWED TO REST. CALL LIGHT WITHIN REACH. BED RAILS UP.
--- NOTE | 2022-03-25 14:00 | NUR ---
PATIENT LYING IN BED. VITALS AND I/O'S COMPLETED. STEVENSON DRAINED AND DOCUMENTED. PT REFUSED DRINK OF WATER/COFFEE. CALL LIGHT WITHIN REACH.
--- NOTE | 2022-03-25 14:17 | NUR ---
AFTERNOON ASSESSMENT AND MEDICATION DUE. PT RESTING IN BED WITH EYES CLOSED ON RIGHT SIDE. PT OPENS EYES TO VOICE AND TOUCH. PT IRRITABLE AND STATES SHE JUST WANTS "TO GO HOME." PT DENIES PAIN AND NAUSEA. PT OREINTED TO BUILDING BUT NOT TO TOWN. PT KNOWS HER OWN NAME AND IS AWARE OF RECENT EVENTS STATING "I DON'T WANT ANY MORE SHOTS." PT KNOWS MONTH AND YEAR BUT NOT DAY OR TIME. PT VERY SLOW TO RESPOND TO QUESTIONS AND FALLS ASLEEP BETWEEN CARES. TIRE RETREADER STRENGTH EQUAL BILATEARLLY. HEART TONES REGULAR WITH MURMUR HEARD. PT CONTINUES TO BE SENSITIVE TO TOUCH BUT DECLINES PAIN MEDICATION. PT NOW BMAT LEVEL 1, UNABLE TO SIT EVEN WITH SUPPORT. PT DELCINES ALL MOVEMENT. PT REPOSITIONED TO SEMIFOWLERS WITH HEAD OFBED AT 30 DEGREES. CLEAR LUNGS SOUNDS IN UPPER LOBES, CORSE IN BASES. OCCATIONAL PRODUCTIVE COUGH WITH YELLOW SPUTUM. SUCTION AT BEDSIDE. EDEMA UNCHANGED. STEVENSON CATHETER CONTINUES SHOWING CLEAR YELLOW URINE. PT RETURNS TO RESTING WITH EYES CLOSED. NO ADDITIONAL REQUESTS OR COMPLAINTS. CALL LIGHT WITHIN REACH. BED RAILS UP.
--- NOTE | 2022-03-25 15:28 | NUR ---
THIS RN TO ROOM TO CHECK ON PT. PT RESTING WITH EYES CLOSED, RESPIRATIONS EVEN AND UNLABORED. RR OF 18. BED RAILS UP. CALL LIGHT WIHTIN REACH. PT ALLOWED TO REST.
--- NOTE | 2022-03-25 16:53 | NUR ---
THIS RN TO ROOM TO CHECK ON PT. PT RESTING WITH EYES CLOSE IN SEMIFOWLER POSITION WITH HEAD OF BED AT 35 DEGREES. RESPRIATIONS EVEN AND UNLABORED. FLACC SCORE OF 0. PT RESPONDS TO TOUCH. PT ALLOWED TO CONTINUE RESTING. CALL LIGHT WITHIN REACH. BED RAILS UP.
--- NOTE | 2022-03-25 17:05 | NUR ---
PT HERE FOR PNEUMONIA AND FAILURE TO THRIVE. PT REMAINS IN BED THIS SHIFT, NO LONGER ABLE OR WILLING TO GET UP OUT OF BED. PT DECLINING MEALS AND TAKING VERY LITTLE PO FLUID. IV FLUIDS CONTINUE. IV ABX GIVEN. PT DENIES PAIN OR NAUSE THROUGHOUT SHIFT AND REFUSES MANY MEDICATIONS AND CARES THROUGHOUT SHIFT, MD AWARE. PT REMAINS ON 2L O2 BY DE TO MAINTAIN OXYGEN SATURATIONS ABOVE 90%. PT SENSITIVE TO ANY TOUCH OR MOVEMENT BUT DECLINES PAIN MEDICATION. STEVENSON CATHETER IN PLACE, QUANITTY SUFFICIENT ALTHOUGH MINMAL. PT STATES REPEADILY THAT SHE JUST WANTS "TO GO HOME TO [facility]." ORAL CARE DONE. PT DOES NOT USE CALL LIGHT. INTENTIONAL HOURLY ROUNDING COMPLETED.
--- NOTE | 2022-03-25 17:21 | NUR ---
PATIENT REFUSED DINNER. PT ALSO REFUSED WATER OR COFFEE. VITALS AND I/O'S COMPELTED. STEVENSON DRAINED AND DOCUMENTED. CALL LIGHT WITHIN REACH.
--- NOTE | 2022-03-25 18:10 | NUR ---
THIS RN TO ROOM TO CHECK ON PT. PT RESTING IN BED WITH EYES CLOSED. PT OPENES EYES TO VOICE AND LIGHT TOUCH. PT REPORTS SHE IS COMFORTABLE AND DECLIENS REPOSITIONING AT THIS TIME. PT DENIES PAIN AND NAUSEA. PT DECLINES DINNER, WATER AND ICE CHIPS. IV FLUIDS CONTINUE. NO ADDIITONAL NEEDS AT THIS TIME. CALL LIGHT WIHTIN REACH. BED RAILS UP.
--- NOTE | 2022-03-25 18:30 | NUR ---
Patient repositioned to the right side. Pt refused water/icechips. Call light within reach.
--- NOTE | 2022-03-25 19:05 | NUR ---
RECEIVED REPORT FROM MICHELE NOLAND. PT RESTING IN BED ALERT AND WATCHING TV. HOB ELEVATED AND 6L HF NC IN PLACE. STEVENSON DRAINING TO GRAVITY. CALL LIGHT WITHIN REACH, NO FURTHER NEEDS AT THIS TIME. CPOX SHOWS O2 OF 90% AT THIS TIME.
--- NOTE | 2022-03-25 19:15 | NUR ---
RECEIVED REPORT FROM MICHELE NOLAND. PT RESTING IN BED W/EYES CLOSED. RESPIRATIONS ARE EVEN AND UNLABORED, NO SIGNS OF DISTRESS. PT APPEARS COMFORTABLE AT THIS TIME. IV FLUIDS INFUSING DIRECTED, IV SITE WNL. 2L OF O2 VIA NC IN PLACE AT THIS TIME (CHRONIC). CALL LIGHT WITHIN REACH.
--- NOTE | 2022-03-25 19:40 | NUR ---
IN PT ROOM W/RT D/T COUGHING. PRN TESSALON PEARLS GIVEN W/SM BITE OF APPLESAUCE (SEE EMAR), PT TOLERATED WELL. BOOSTED PT IN BED W/3PA. RT IN ROOM AT THIS TIME FOR BREATHING TX.
--- NOTE | 2022-03-25 22:15 | NUR ---
IN PT ROOM FOR ASSESSMENT, VS, I/O'S AND AUDIO ENGINEER. PT LAYING IN BED W/EYES CLOSED, AWAKENS TO VOICE. PT IS NONVERBAL AT THIS TIME, RESPONDS W/YES&NO NODS. PT RESPONDS W/NOD THAT SHE IS NOT IN PAIN AT THIS TIME AND THAT SHE IS COMFORTABLE. ATTEMPTED MOUTH CARE BUT PT DECLINED AT THIS TIME, WAS ABLE TO MOISTEN LIPS. DESENEX POWDER APPLIED TO GROIN REGION, PT IS VERY UNCOMFORTABLE AND GRIMACES W/TOUCH OR MOVEMENT. NON-PITTING EDEMA STILL PRESENT IN BLE, LFT>RT. PULSES PRESENT THROUGHOUT, LUNGS ARE DIM THROUGHOUT, BOWEL TONES ACTIVE X4. VSS. STEVENSON DRAINING TO GRAVITY, STEVENSON CARE PERFORMED. CALL LIGHT WITHIN REACH, FLUIDS/ABX INFUSING DIRECTED (IV SITE WNL). NO FURTHER NEEDS AT THIS TIME.
--- NOTE | 2022-03-25 23:56 | NUR ---
PT RESTING W/EYES CLOSED. RESPIRATIONS ARE EVEN AND UNLABORED, NO SIGNS OF DISTRESS. CALL LIGHT WITHIN REACH. PT ON 2L OF O2 VIA NC (CHRONIC). IV ABX INFUSING DIRECTED, SITE WNL.
--- NOTE | 2022-03-26 00:49 | NUR ---
PT RESTING W/EYES CLOSED. RESPIRATIONS ARE EVEN AND UNLABORED, NO SIGNS OF DISTRESS. 2L VIA NC OF O2 IN PLACE. CALL LIGHT WITHIN REACH. PT APPEARS COMFORTABLE AT THIS TIME. ABX INFUSING DIRECTED, IV SITE WNL.
--- NOTE | 2022-03-26 03:23 | NUR ---
PT RESTING W/EYES CLOSED. RESPIRATIONS ARE EVEN AND UNLABORED, NO SIGNS OF DISTRESS. NO ACUTE CHANGES FROM PREVIOUS ASSESSMENT. PT WINCES AND MOANS W/REPOSITIONING OR TOUCH OF ANY KIND. IV SITE WNL, CONTINUOUS FLUIDS INFUSING DIRECTED. PT COMMUNICATES W/HEAD MOVEMENTS, NONVERBAL AT THIS TIME. STATES W/HEAD NOD THAT SHE IS NOT IN PAIN AND THAT SHE IS COMFORTABLE. CALL LIGHT WITHIN REACH, PT STATES NO FURTHER NEEDS AT THIS TIME.
--- NOTE | 2022-03-26 04:26 | NUR ---
PT RESTING W/EYES CLOSED LEANING TOWARDS RT SIDE AT THIS TIME. RESPIRATIONS ARE EVEN AND UNLABORED, NO SIGNS OF DISTRESS. CALL LIGHT WITHIN REACH. PT RECEIVING O2 VIA NC AT 2L (CHRONIC). CONTINUOUS FLUIDS INFUSING DIRECTED, IV SITE WNL.
--- NOTE | 2022-03-26 06:10 | NUR ---
IN PT ROOM FOR VS. PT WANTED SIP OF WATER, TINY SPOONFUL GIVEN AT TIP OF TONGUE, PT BEGAN TO COUGH, HOB ELEVATED AND SUCTIONED. HAD CONVERSATION W/PT THAT UNABLE TO SWALLOW SAFELY AND WATER SWABS WOULD BE BENEFICIAL FROM NOW ON, PT NODDED HEAD IN VERBAL UNDERSTANDING. WATER MOUTH SWAB USED AND PT ENJOYED CLOSING MOUTH AROUND IT. PT WINCED AND BATTED HAND AT REPOSITIONING. CHAPSTICK APPLIED. CALL LIGHT WITHIN REACH, NO FURTHER NEEDS AT THIS TIME.
--- NOTE | 2022-03-26 06:23 | NUR ---
SCHEDULED IV ABX INFUSING DIRECTED ALONG WITH IV MAINTENANCE FLUIDS. pt RESTING QUIETLY IN BED, WHEN ATTEMPTED TO WAKE pt TO ASK IF SHE WANTED HER THYROID MEDICATION, pt BECAME UPSET AND PUSHED THIS RN AWAY AND STATED, "NO LEAVE ME ALONE, I WANT TO GO HOME". pt REFERRING TO [facility] AFTER FURTHER EVALUATION. IV SITE WNL, PO THYROID MED HELD PER pt REQUEST. 2LNC IN PLACE, RR EVEN AND UNLABORED. pt LEFT IN BED RESTING WITH EYES CLOSED. CALL LIGHT IN REACH.
--- NOTE | 2022-03-26 07:18 | NUR ---
REPORT RECEIVED FROM NUZHAT JAMES. RASS SCORE OF 0. PT SHAKES HEAD "NO" WHEN ASKED IF SHE IS IN PAIN. FLACC SCORE OF 0/10. PT TEARFUL AND STATING "I JUST WANT TO GO HOME." PT ASSISTED WITH MOUTH SWABS FOR DRY MOUTH. ARMS ELEVATED ON PILLOWS. HEAD OF BED AT 35 DEGREES. NO ADDITIONAL REQUESTS OR COMPLAINTS. CALL LIGHT WITHIN REACH. BED RAILS UP.
--- NOTE | 2022-03-26 09:17 | NUR ---
MORNING ASSESSMENT AND MEDICATION DUE. PT RESTING IN BED WITH HEAD OF BED ELEVATED TO 30 DEGREES. PILLOWS UNDER RIGHT SIDE TO OFF LOAD WEIGHT. MEDICAITONS AND IV FLUIDS DC'D PER MD. IV SALINE LOCKED AT THIS TIME. PT RESPONDS TO VOICE AND SHAKES HEAD "NO" WHEN ASKED ABOUT PAIN AND "NO" WHEN ASKED IF SHE WANTS PAIN MEDICAITONS. PT DOES NOT OPEN EYES. RASS SCORE OF -1. FLACC SCORE OF 0. HEART TONES REGULAR WITH RATE IN THE 70'S. LUNG SOUNDS CLEAR IN UPPER LOBES, VERY DEMIISHED IN BASES, SHALLOW BREATHING SEEN. PT DOES NOT VERBALLY ANSWER QUESTIONS AT THIS TIME. PT REMAINS BED BOUND, BROOKE LIFT ONLY. THROAT CLEARING NOTED AT VARIOUS TIMES. 2L O2 BY NC REMAINS IN PLACE FOR COMFORT. BOWEL TONES REMAIN ACTIVE. PT CONTINUES PRODUCING QUANITTY SUFFFICIENT CLEAR YELLOW URINE. MD AWARE OF PTS STATUS AND ASSESSMENT, COMFORT MEASURES IN PLACE PER PT REQUEST. MICONAZOLE POWDER IN PLACE FOR SKIN COMFORT. PT CONTINUES RESTING WITH EYES CLOSED, "O" SIGN CONTINUES. NO ADDIITONAL NEEDS AT THIS TIME. BED RAILS UP. CALL LIGHT WITHIN REACH.
--- NOTE | 2022-03-26 09:22 | NUR ---
DC'D MEDICATIONS PER DR FISCHER VERBAL ORDER.
--- NOTE | 2022-03-26 10:09 | NUR ---
THIS RN TO ROOM TO CHECK ON PT. RASS SCORE OF -1. FLACC SCORE OF 0/10. PT REPOSITIONED TO RIGHT SIDE, SUPPORTED WITH PILLOWS ON LEFT SIDE. PT NOD'S HEAD NO STATING SHE DOES NOT HAVE PAIN OR WANT PAIN MEDICATIONS. NO ADDITIONAL NEEDS AT THIS TIME. CALL LIGHT WITHIN REACH. BED RAILS UP.
--- NOTE | 2022-03-26 11:15 | NUR ---
THIS RN TO ROOM TO CHECK ON PT. PT REPORTS 8/10 PAIN IN RIGTH SIDE. PT REQUESTS PAIN MEDICATION. PT NON VERBAL AND USING SIGN LANGUAGE TO COMMUNICATE NUMBER OF PAIN AND PLACE OF PAIN. IV MEDICATION ATEMPTED AND IV NOTED TO BE INFILTRATED AND PAINFUL. IV DC'D PER PROTOCOL. GAUZE AND COBAN APPLIED. PT HAS EXPRESSED DESIRE IN THE PAST FEW DAYS FOR "NO MORE POKES." DR. FISCHER CONSULTED AND SUBLINGUAL MORPHINE ORDERED. SEE MAR FOR MEDICATION GIVEN. ORAL CARE WITH SUCTION, MOUTH DEBREDIGN SOLUTION, MOUTH WASH AND MOUTH MOISTERIZER PERFORMED. PT DOES NTO TOELRATE WELL AND PUSH HANDS AWAY. PT READJUSTED TO LEFT SIDE, SUPPORTED WITH PILLOWS POSITION WITH HEAD OF BED AT 25 DEGREES. NO ADDITIONAL NEEDS AT THIS TIME. CALL LIGHT WITHIN REACH. BED RAILS UP.
--- NOTE | 2022-03-26 12:05 | NUR ---
THIS RN TO ROOM TO CHECK ON PT. PT RESTING ON LEFT SIDE, PT REPORTS PAIN HAS IMPROVED AND SHE IS COMFORTABLE, NOW USES FINER GESTURES TO SHOW 3/10 PAIN. PT DECLINES ADDITIONAL PAIN MEDICATION. PT ASSISTED WITH HAVING WATER BY MOUTH SWAB. PT DECLINES LUNCH. PTS FAMILY ARRIVED TO BEDSIDE, UPDATED ON PT STAUTS AND PLAN OF CARE. FAMILY STATES THEIR QUESTIONS HAVE BEEN ANSWSERED. PT DENIES ADDITIONAL REQUESTS OR COMPLAINTS. CALL LIGHT WITHIN REACH. FAMILY AT BEDSIDE.
--- NOTE | 2022-03-26 12:56 | NUR ---
THIS RN TO ROOM TO CHECK ON PT. PT RESTING IN BED, VISITINGWITH FAMILY. PT VERBAL AT THIS TIME AND EXPRESSING NEEDS WITH WORDS. PT ASKS FOR "A BIG PIECE OF ICE." ICE CHIP TRIALED AND PT TOLEARTES WELL WITH OUT CHOAKING, SUCTION REMAINS AT BEDSIDE. PT DENIES PAIN AND NASUEA. NO ADDITIONAL REQUESTS OR COMPLAINTS. CALL LIGHT WITHIN REACH. FAMILY AT BEDSIDE.
--- NOTE | 2022-03-26 14:38 | NUR ---
AFTERNOON ASSESSMENT DUE. THIS RN TO ROOM. PT RESTING WITH EYES CLOSED, RESPRIATIONS EVEN AND UNLABORED. PT DENIES PAIN AND NAUSEA AND STATES SHE DOESN'T NEED PAIN MEDICATION. PT ORETINED TO SELF, PLACE AND EVENTS AT THIS TIME AND IS USING A MIX OF WORDS AND GUESTURES TO COMMUNICATE NEEDS. PT SLOW TO RESPOND BUT INTELAGABLE AND RESPONDING APPORPRIATLY. PT ASSISTS MINIMALLY WITH ROLLING SIDE TO SIDE FOR COCCYX WOUND EVALUATION AND LINEN CHANGE. LARGE SOFT BOWEL MOVEMENT NOTED. JESSENIA CARE AND CATHETER CARE DONE. LINENS CHANGED. PHOTOGRAPHS TAKE OF WOUND ON COCCYX (SEE PAPER CHART). NEW ALLEVYN APPLIED. SMALL 1CM X05 CM 1ST DEGREES PRESSURE ULCER NOTED. LARGE AREA OF REDDENED SKIN (SEE PHOTOGRAPHS). NEW ALLEVYN APPLIED. BARRIER CREAM AND MICONAZOLE POWDER APPLIED TO JESSENIA AREA AFTER JESSENIA CARE. PT DENIES PAIN WIHT MOVEMENT BUT CRIES OUT WHEN LEGS ARE MOVED. PT CONTINUES TO DELCINE PAIN MEDICATION. HEART TONES REGUALR. LUNG SOUNDS CLEAR. BOWEL TONES ACTIVE. GENERALIZED EDEMA CONTINUES TO BLE AND ARMS. NO COUGH OR SPUTUM NOTED AT THIS TIME. SHALLOW BREATHING CONTINUES. PT STATES HER FAMILY TOLD HER THAT IF SHE GETS AN IV FOR TREATMENT THEY WILL BUY HER GRANDDAUGHTER A HORSE. PT ASKING FOR AN IV AT THIS TIME "SO MY GRANDAUGHTER CAN HAVE A HORSE AND BE HAPPY." PT STATES "SHE HAS BEEN SO GOOD TO ME I WANT HER TO BE HAPPY." PT EDUCATION AND THERAPUTIC COMMUNICATION DONE. PT STATES SHE DOES NOT WANT AN IV AND DOES NOT WANT TREATEMENT. PT ADVISED THAT SHE ONLY NEEDS AN IV IF SHE WOULD LIKE TREATEMENT. PT IS ADIMENT THAT "I DON'T WANT TREATEMENT, I DONT' WANT ANTIBIOTICS. i DON'T WANT MORE POKES. SAVE THE NEEDLE FOR SOMEONE ELSE." AWARE/UPDATED. PT POSISIONTED TO RIGHT SIDE LYING PER HER REQUEST. SUPPORTED WITH PILLOWS. PT DENIES ADDITIONAL REQUESTS OR COMPLAINTS. CALL LIGHT WIHTIN REACH. BED RAILS UP.
--- NOTE | 2022-03-26 15:22 | NUR ---
THIS RN TO ROOM TO CHECK ON PT. PT RESTING ON RIGHT SIDE LOOKING AT PICTURES ON A VIDEO SCREEN BROUGHT BY FAMILY. PT REPORTS PAIN IS "COMING BACK." NOW AT 5/10 IN RIGHT SIDE. PT DECLINES REPOSITIONING. PT AGREES TO PAIN MEDICATION (SEE MAR FOR MEDICATION GIVEN). PT DENIES ADDITIONAL REQUESTS OR COMPLAINTS. RASS SCORE OF 0. CALL LIGHT WITHIN REACH. BED RAILS UP.
--- NOTE | 2022-03-26 15:28 | NUR ---
DR FISCHER UPDATED ON PT STATUS AND ASSESSMENT, NO NEW ORDERS AT THIS TIME.
--- NOTE | 2022-03-26 16:46 | NUR ---
THIS RN TO ROOM TO CHECK ON PT. PT RESTING WITH EYES CLOSED, RESPIRATIONS EVEN AND UNLABORED. BED RAILS UP. CALL LIGHT WITHIN REACH. HEAD OF BED ELEVATGED TO 30 DEGREES. PT ALLOWED TO REST.
--- NOTE | 2022-03-26 16:56 | NUR ---
PT HERE FOR PNEUMONIA AND FAILURE TO THRIVE. PT REMAINS IN BED THIS SHIFT, NO LONGER ABLE OR WILLING TO GET UP OUT OF BED. PT DECLINING MEALS AND TAKING VERY LITTLE PO FLUID. IV FLUIDS AND MEDICATIONS DC'D PER PT REQUEST TO DISCONTINUE TREATEMENTS. PRN PAIN MEDICATION GIVEN (NOW SUBLINGUAL) FOR RIGHT SIDED PAIN. LARGE SOFT BOWEL MOVEMENT NOTED THIS SHIFT, JESSENIA CARE AND CATHETER CARE. PHOTOGRAPHS TAKE OF PTS COCCYX AREA. PT REMAINS ON 2L O2 BY NC TO MAINTAIN OXYGEN SATURATIONS ABOVE 90% STEVENSON CATHETER IN PLACE, QUANITTY SUFFICIENT ALTHOUGH MINMAL. PT CONTINUES TO STATE THAT SHE JUST WANTS "TO GO HOME TO [facility]." ORAL CARE DONE. PT DOES NOT USE CALL LIGHT. INTENTIONAL HOURLY ROUNDING COMPLETED. FAMILY AT BEDSIDE AND UP DATED ON PLAN OF CARE.
--- NOTE | 2022-03-26 17:56 | NUR ---
THIS RN TO ROOM TO CHECK ON PT. PT RESTING ON RIGHT SIDED, SUPPORTED WITH PILLOWS, WITH EYES CLOSED. RESPIRATIONS EVEN AND UNLABORED. RR OF 16. PT ALLOWED TO REST. CALL LIGHT WITHIN REACH. BED RAILS UP.
--- NOTE | 2022-03-26 18:40 | NUR ---
THIS RN TO ROOM TO CHECK ON PT. PT RESTING ON LEFT SIDE WITH EYES CLOSED. RESPIRATIONS EVEN AND UNLABORED, RR OF 18. BED RAILS UP. CALL LIGHT WITHIN REACH. PT ALLOWED TO REST.
--- NOTE | 2022-03-26 19:05 | NUR ---
RECEIVED REPORT FROM MICHELE NOLAND. PT RESTING W/EYES CLOSED IN BED. CALL LIGHT WITHIN REACH. NO IV SITE OK'ED. PT ON 2L VIA NC (CHRONIC), O2 >90%.
--- NOTE | 2022-03-26 22:00 | NUR ---
IN PT ROOM FOR ASSESSMENT, VS, REPOSITIONING, AND I/O'S. PT RESTING W/EYES CLOSED BUT AWAKENS EASILY TO VOICE. PT ORIENTED TO SELF, LOCATION, BUT NOTHING ELSE. PROVIDED ICE CHIPS WHICH PT PLACES UNDER TONGUE TO PREVENT DIFFICULTY SWALLOWING, TOLERATES WELL. PT DECLINED CHAPSTICK/ORAL CARE AT THIS TIME. REPOSITIONED PT W/BOTH HIPS FLOATED. PILLOWCASE PLACED BETWEEN THIGHS FOR BARRIER. DESENEX POWDER APPLIED TO GROIN, STEVENSON CARE PERFORMED. DEPENDENT EDEMA IN LEGS, VERY SENSITIVE/TENDER TO TOUCH. VSS. HEEL PROTECTORS IN PLACE. LUNGS ARE DIMINISHED THROUGHOUT, PULSES DIMINISHED IN PEDAL, STRONG RADIAL, BOWEL TONES ACTIVE X4. ALLEYVN ON SACRUM IS C/D/I. PT STATES SHE IS IN NO PAIN AT THIS TIME, DECLINES NEED FOR PRN. CALL LIGHT WITHIN REACH, NO FURTHER NEEDS AT THIS TIME.
--- NOTE | 2022-03-26 23:33 | NUR ---
PT RESTING W/EYES CLOSED. RESPIRATIONS ARE EVEN AND UNLABORED, NO SIGNS OF DISTRESS. 2L CHRONIC NC O2 IN PLACE AT THIS TIME. PT APPEARS COMFORTABLE.
--- NOTE | 2022-03-27 01:39 | NUR ---
PERFORMED ROUNDING, PT MOANING QUIETLY IN BED. ASKED PT IF SHE WAS IN PAIN AND SHE NODDED YES WHILE POINTING TO URQ. ICE CHIPS PROVIDED AT PT REQUEST FOR COMFORT, ICE PACK PROVIDED FOR PT COMFORT, PRN MORPHINE GIVEN FOR PAIN, FLACC SCALE USED (SCORE OF 4). PT NOW RESTING COMFORTABLY, CALL LIGHT WITHIN REACH. NO ACUTE CHANGES FROM PREVIOUS ASSESSMENT.
--- NOTE | 2022-03-27 03:51 | NUR ---
PT RESTING W/EYES CLOSED. RESPIRATIONS ARE EVEN AND UNLABORED, NO SIGNS OF DISTRESS. CALL LIGHT WITHIN REACH. PT APPEARS COMFORTABLE AT THIS TIME.
--- NOTE | 2022-03-27 04:30 | NUR ---
PT RESTING W/EYES CLOSED. RESPIRATIONS ARE EVEN AND UNLABORED, NO SIGNS OF DISTRESS. CALL LIGHT WITHIN REACH. PT APPEARS COMFORTABLE AT THIS TIME.
--- NOTE | 2022-03-27 05:00 | NUR ---
PERFORMING ROUNDS, PT GAGGING IN ROOM, HOB ELEVATED, EMESIS BAG PROVIDED. PT GRABS STOMACH AND NODS HEAD TO NAUSEA. PRN ZOFRAN ORDER SUBMITTED VIA APOLINAR CHRISTINA RN. SUBLINGUAL ZOFRAN GIVEN AND ICE CHIP PROVIDED. COLD RAG ON PT HEAD. THIS RN IN ROOM W/PT FOR 10 MIN UNTIL PT NO LONGER GAGGING. PT IS NOW RESTING W/EYES CLOSED AND COLD CLOTH ON FOREHEAD. HOB ELEVATED AT THIS TIME. CALL LIGHT WITHIN REACH.
--- NOTE | 2022-03-27 07:10 | NUR ---
REPORT RECEIVED FROM NUZHAT JAMES. PT RESTING ON LEFT SIDE, SUPPORTED WITH PILLOWS. PT MOVES TO TOUCH BUT DOES NOT OPEN EYES. FLACC SCORE OF 0/10. RASS SCORE OF -1. PT ALLOWED TO REST. CALL LIGHT WITHIN REACH. BED RAILS UP.
--- NOTE | 2022-03-27 09:14 | NUR ---
MORNING ASSESSMENT AND MEDICAITON DUE. PT RESTING IN BED SEMIFOWLER WITH HEAD OF BED ELEAVTED TO 30 DEGREES. HIPS FLAOTED WITH PILLOWS. PT DENIES PAIN AND NAUSEA. SWALLOWING REMAINS INPAIRED WITH SLOWED RESPONSE AND THROAT CLEARING WITH ANY LIQUID. MOUTH SWAB PROVIDED. PT REMAINS ON BED REST. PT DECLINES REPOSITIONING. PT IRRITIBAL AND REFUSING CARES. PT OREINTED TO SELF AND THAT SHE IS IN THE HOSPITAL. 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 PT DENIES NAUSEA. PT DECLINES MOVEMENT OF LEGS/FEET BUT IS SEEN TO MOVE FEET ON HER OWN. PT HAS COOL CLOTH OVER FORHEAD AND REQUESTS IT STAY THERE. +2 PITTING DARCIE ANOTED IN RIGHT ARM, +1 PITTING DARCIE NOTED IN RIGHT LOWER EXTREMITY AND LEFT ARM. +3 PITTING EDEMA NOTED TO LEFT LEG. PT DECLIENS BREAKFAST. PT DECLIENS MOVEMENT FOR VISULIZATION OF COCCYX. QUANTITY SUFFICIETN CLEAR YELOW URINE CONTINUES IN STEVENSON CATHETER. NO ADDITIONAL NEEDS AT THIS TIME. CALL LIGHT WITHIN REACH. BED RAILS UP.
--- NOTE | 2022-03-27 10:01 | NUR ---
THIS RN TO ROOM TO CHECK ON PT. PT RESTING WITH EYES CLOSED. PT AWAKENS TO SOUNDS IN THE ROOM. PT DENIES PAIN AND NAUSEA. PT REQUESTS WATER. MOUTH SWABS OF WATER PROVIDED. PT TOELRATES WELL WITH MINOR THROAT CLEARING NOTED. PT DECLIENS REPOSITIONING. NO ADDITIONAL REQUESTS OR COMPLAINTS. CALL LIGHT WITHIN REACH. BED RAILS UP.
--- NOTE | 2022-03-27 11:37 | NUR ---
THIS RN TO ROOM TO CHECK ON PT. PT RESTING IN BED WITH EYES CLOSED ON RIGHT SIDE, SUPPORTED WITH PILLOWS. PT ALLOWED TO REST UNDESTURBED. CALL LIGHT WITHIN REACH. BED RAILS UP.
--- NOTE | 2022-03-27 11:53 | NUR ---
PTS FAMILY TO NURSES STAION STATING THEY HAVE QUESTIONS. THIS RN TO ROOM. PLAN OF CARE REVIEWED WITH FAMILY PER PT REQUEST. FAMILY VERBALIZES UNDERSTANDING AND STATES THEIR QUESTIONS HAVE BEEN ANSWERD. PT REQUESTS "A SIP OF COFFE" FOR A 2/10 HEADACHE, PROVIDED. PT DECLINES PAIN MEDICATION. PT REPORTS THE BANDAGE TO HER BACKSIDE IS "ITCHING." PT AGREES TO TURNING FOR EXAMINATION. TWO PERSON ASSIST TO ROLL TO RIGHT SIDE, BANDAGE C/D/I. REMOVED PER PT REQUEST AND NEW ALLEVYN PLACED. WOUND UNCHANGED FROM YESTERDAY'S PHOTOGRAPHS. PT POSITIONED FULLY SIDE LYING ON RIGHT SIDE PER HER REQUEST. PILLOWS USED FOR SUPPORT AND BETWEEN YEMI PROMINANCES. PT DENIES ADDITIONAL REQUESTS OR COMPLAINTS. FAMILY REMAINS AT BEDSIDE. CALL LIGHT WITHIN REACH. BED RAILS UP.
--- NOTE | 2022-03-27 12:00 | NUR ---
INTO PATIENT ROOM WITH NUZHAT BAUTISTA. PATIENT DAUGHTER SEBASTIEN AND FAMILY AT BEDSIDE. PATIENTS DAUGHTER STATES SHE HAS NOT RECVD A CALL [facility] REGARDING THE PATIENT ADMISSION TOMORROW. ADVISED I ATTEMPTED TO [facility]CT [facility] AM WITH NO ANSWER. ADVISED WILL CONTIUE TO TRY TO CONTACT OVER THE NEXT FEW HOURS SO THAT FURTHER DC PLANNING CAN TAKE PLACE. CALL PLACED TO [facility]. LEFT MESSAGE WITH ANSWERING SERVICE TO SPEAK WITH CURTIS NOLAND WHO IS [employer] SUPERVISOR.
--- NOTE | 2022-03-27 12:38 | NUR ---
THIS RN TO ROOM TO CHECK ON PT. PT CONTINUES RESTING ON RIGHT SIDE, SUPPORTED WITH PILLOWS. PT ADJUSTS LEGS ON HER OWN PER HER OWN REQUST. PT REPORTS HEADACHE HAS RESOLVED. PT DRANK MILK FOR LUNCH BUT OTHERWISE DECLINES LUNCH TRAY. PT DENIES PAIN AND NAUSEA. NO ADDITIONAL REQUESTS OR COMPLAINTS. CALL LIGHT WITHIN REACH.
--- NOTE | 2022-03-27 14:18 | NUR ---
AFTERNOON ASSESSMENT DUE. PT RESTING IN BED WITH EYES CLOSED. PT AWAKENES TO VOICE AND LIGHT TOUCH. PT DENIES PAIN AND NAUSEA. PT OREINTED TO SELF AND THAT SHE IS IN THE HOSPITAL AND REMEMBERS THAT FAMILY WAS HERE TO VISIT BUT IS OTHER [facility] DISOREINTED. PT THINKS FAMILY IS STILL HERE (FAMILY IS NO LONGER IN THE ROOM.). PT STATES SHE IS IN "[facility]." AND IT IS "MAY" OF "." LUNG SOUNDS CLEAR. HEAR TONES REGAULR. BLOWE TONES ACTIVE. PT REMAINS VERY SENSISTIVE TO TOUCH IN LOWER EXREMITIES. SHALLOW BREATHIGN CONTINUES WITH OCCATIONAL COUGH WITH PO INTAKE, MD AWARE. PT REQUESTS WATER, SIPS OF WATER PROVIDED. EDMEA TO EXTREMITIES UNCHANGED. QUANTITY SUFFICIENT URINE CONTINUES IN STEVENSON CATHETER. CATHETER CARE DONE. PT REPOSITIONED TO SEMI DUQUE WITH HEAD OF BED AT 30 DEGREES. ALLEVYN TO COCCYX REMAINS C/D/I. NO ADDITIONAL NEEDS AT THIS TIME. CALL LIGHT WITHIN REACH. BED RAILS UP.
--- NOTE | 2022-03-27 15:24 | NUR ---
THIS RN TO ROOM TO CHECK ON PT. PT RESTING IN BED WITH EYES CLOSED, RESPIRATIONS EVEN AND UNLABORED. BED RAILS UP. CALL LIGHT WITHIN REACH. PT ALLOWED TO REST.
--- NOTE | 2022-03-27 16:22 | NUR ---
HOURLY ROUNDING. PT RESTING WITH EYES CLOSED. RESPRIATIONS EVEN AND UNLABORED. BED RAILS UP. CALL LIGHT WITHIN REACH. PT ALLOWED TO REST.
--- NOTE | 2022-03-27 16:25 | NUR ---
PT HERE FOR PNEUMONIA AND FAILURE TO THRIVE. PT REMAINS IN BED THIS SHIFT, BMAT LEVEL 1, BROOKE LIFT. REQUESTS FLUIDS THIS SHIFT INCLUDING MILK AND COFFEE. PROVIDED PER PT REQUEST. SWALLOWING DIFFICULTIES CONTINUE, MD AWARE. PT OREINTED INCONSISTANTLY THIS SHIFT BUT COMMUNICATES NEEDS. PT DENIES PAIN SO FAR THIS SIFT, PRN MEDICATION OFFERED AND AVALIABLE. PT REMAINS ON 2L O2 BY NC TO MAINTAIN OXYGEN SATURATIONS ABOVE 90% STEVENSON CATHETER IN PLACE, QUANITTY SUFFICIENT. ORAL CARE REFUSED. FAMILY AT BEDSIDE AND UPDATED ON PLAN OF CARE. PT ANTICIPATING RETURN TO HOME ON HOSPICE TOMORROW. PT DOES NOT USE CALL LIGHT. INTENTIONAL HOURLY ROUNDING COMPLETED.
--- NOTE | 2022-03-27 17:49 | NUR ---
HOURLY ROUNDING: PT RESTING WITH EYES CLOSED, RESPIRATIONS EVEN AND UNLABORED. RR OF 16. PT ALLOWED TO REST UNDESTURBED. BED RAILS UP. CALL LIGHT WITHIN REACH.
--- NOTE | 2022-03-27 18:50 | NUR ---
THIS RN TO ROOM TO CHECK ONPT. PT CONTINUES RESTING WITH EYES CLOSED. RESPIRATIONS EVEN AND UNLABORED. PT MOVES TO TOUCH. PT ALLOWED TO REST. CALL LIGHT WITHIN REACH. BED RAILS UP.
--- NOTE | 2022-03-27 19:42 | NUR ---
REPORT RECEIVED FROM DAY SHIFT RN. PT LYING IN BED WITH EYES CLOSED. RESPIRATIONS SHALLOW. NO APPARENT DISTRESS. WHITE BOARD UPDATED. CALL LIGHT IN REACH.
--- NOTE | 2022-03-27 22:35 | NUR ---
EVENING ASSESSMENT COMPLETE. SCHEDULED MEDS ADMIN PER EMAR. PT DENIES PAIN OR NAUSEA. SIPS OF WATER AND MILK PROVIDED PER REQUEST. NO SWALLOWING ISSUES NOTED. STEVENSON PATENT WITH YELLOW URINE. CATH CARE DONE. REPOSITIONED WITH PILLOWS. 2L/NC IN PLACE. PT DENIES QUESTIONS OR CONCERNS. CALL LIGHT IN REACH.
--- NOTE | 2022-03-28 02:41 | NUR ---
PT RESTING IN BED WITH EYES CLOSED. RESPIRATIONS SHALLOW. OXYGEN 2L/NC IN PLACE. STEVENSON PATENT WITH YELLOW URINE.
--- NOTE | 2022-03-28 04:14 | NUR ---
PT REPOSITIONED IN BED WITH PILLOWS. SIPS OF WATER PROVIDED. PT DENIES PAIN OR NAUSEA. ORAL CARE DONE. NO FURTHER NEEDS.
--- NOTE | 2022-03-28 06:39 | NUR ---
PT RESTING WITH EYES CLOSED. RESPIRATIONS EVEN. REPOSITIONED TO FLOATING POSITION WITH PILLOWS. ORAL CARE DONE.
--- NOTE | 2022-03-28 07:06 | NUR ---
REPORT RECEIVED FROM NUZHAT LEWIS. PT RESTING IN SUPINE POSITION WITH HEAD OF BED AT 15 DEGREES, WITH EYES CLOSED. RESPIRATIONS EVEN AND UNLABORED. BED RAILS UP. CALL LIGHT WITHIN REACH. PT ALLOWED TO REST UNDESTURBED.
--- NOTE | 2022-03-28 08:46 | NUR ---
Family and patient updated about discharge plan. The [facility] will be here at 0930 to transport patient to [place]. Hospice will admit patient at 11:00 am today. Patient states she is happy to be going home today.
--- NOTE | 2022-03-28 09:08 | NUR ---
MORNING ASSESSMENT AND MEDICATION DUE. PT RESTING IN BED IN SUPINE POSITION WITH HEAD OF BED AT 20 DEGREES. PT DENIES PAIN AND NASUEA. PT ORIENTED TO SELF, THAT SHE IS IN THE HOSPITAL, AND SITUATION. PT REMAINS DISORINTED TO DATE, MONTH, YEAR, TOWN AND SOME EVENTS. PT FORGETFUL AT TIMES. PT MOVES ALL EXTREMITIES AND FOLLOWS COMMANDS. GENERALIZED WEAKNESS CONTINUES. PT REMAINS BED BOUND WITH BMAT OF 1 NEEDING BROOKE LIFT FOR TRANSFERS. PT CONTINUES TO BE HPERSENSITIVE TO TOUCH IN LOWER EXTREMITIES BUT DECLIENS PAIN MEDICATION. LUNG SOUNDS CLEAR. HEART TONES REGULAR. PT REMAINS ON 2L O2 BY LA WITH OXGYEN SATURATIONS IN THE UPPER 90'S. EDEMA UNCHANGED. DRESSING TO COCCYX C/D/I, DEPENDS PLACED PER PT REQUEST. MICONAZOLE POWDER APPLIED. PT CONTINUES TO DECLINE BREAKFAST, TAKES SIPS OF WATER, OCCATIONAL THROAT CLEARING NOTED STEVENSON CATHETER EMPITED OF CLEAR YELLOW URINE. NO ADDITIONAL REQUESTS OR COMPLAITNS. PT VERBALIZES UNDERSTANDING OF PLAN OF CARE BY RODRI ALEX "YES" AND STATES HER QUESTIONS HAVE BEEN ANSWERED. AWAITING [facility]. CALL LIGHT WITHIN REACH.
--- NOTE | 2022-03-28 10:19 | NUR ---
THIS RN TO ROOM TO CHECK ON PT. PT RESTING WITH EYES CLOSED. RESPIRATIONS EVEN AND UNLABORED. TRANSPORT [facility] DELAYED DUE TO OTHER [facility] [place]. PT ALLOWED TO REST UNDESTRUBED. CALL LIGHT WITHIN REACH. BED RAILS UP.
--- NOTE | 2022-03-28 11:44 | NUR ---
[facility] ARRIVED TO TAKE PT HOME FOR HOSPICE CARE. REPORT GIVEN TO TRANSPORT [facility]. [facility]. PT VERBALIZES UNDERSTANDING OF PLAN OF CARE. DISCHRAGE PACKET GIVEN TO TRANSPORT [facility]. NO ADDITIONAL REQUESTS OR CONCERNS.
--- NOTE | 2022-03-28 11:46 | NUR ---
PTS DAUGHTER SEBASTIEN, CALLED AND UPDATED REGARDING PTS TRANSFER.
== END 2022-03-28 11:40 | disposition home or self-care (01) | DRG 194 ==
LOC: ED 12:55 → MS 12:58
PROVIDERS: ADMIT Family Medicine; ATTEND Internal Medicine
DX: J13 Pneumonia due to Streptococcus pneumoniae (principal); N39.0 Urinary tract infection, site not specified; Z68.1 Body mass index [BMI] 19.9 or less, adult; R62.7 Adult failure to thrive; Z20.822 Contact with and (suspected) exposure to COVID-19; Z51.5 Encounter for palliative care; Z66 Do not resuscitate; E83.42 Hypomagnesemia; E87.6 Hypokalemia; I44.7 Left bundle-branch block, unspecified; N31.9 Neuromuscular dysfunction of bladder, unspecified; I10 Essential (primary) hypertension; M06.9 Rheumatoid arthritis, unspecified; K21.9 Gastro-esophageal reflux disease without esophagitis; M54.2 Cervicalgia; Z98.890 Other specified postprocedural states; Z90.49 Acquired absence of other specified parts of digestive tract; Z87.440 Personal history of urinary (tract) infections; Z88.1 Allergy status to other antibiotic agents; Z79.82 Long term (current) use of aspirin; Z79.899 Other long term (current) drug therapy
CPT/HCPCS: 36415; 71045; 72050; 80053; 80202; 81001; 83605; 83735; 84100; 84484; 85025; 87040; 87502; 93005; 93010; 97110; 97163; 97167; A9270; C9803; J1650; J1885; J2270; J2405; J2543; J3370; J3475; J3480; J7060; J7120; J7121; U0003